=== PATIENT | female | born 1950 | race Caucasian/White ===

== ENCOUNTER → 2016-10-23 | Outpatient (CLI) | payer MEDICARE, OTHER ==
[~2016-10-23] MED LIST: ASPI81TA3 GTB; ATEN50TA PO; ATOR10TA65
--- NOTE | 2016-10-23 16:39 | RADRPT ---
PROCEDURE: XR Left Foot. CLINICAL INDICATION: Left foot pain. TECHNIQUE: Three views. Frontal, lateral, and oblique. COMPARISON: None. FINDINGS: There is no fracture or dislocation. The soft tissues are normal. There are degenerative changes of the first metatarsal phalangeal joint with joint space narrowing a nd osteophytes. There is a plantar calcaneal spur. There is no lytic or blastic lesion. There is no radiopaque foreign body. IMPRESSION: 1. Degenerative changes of the first metatarsal phalangeal joint. 2. Plantar calcaneal spur. 3. Otherwise unremarkable images of the left foot. RPTAT: QQ .Akash Ward MD, MD Date Time Electronically viewed and signed by .Akash Ward MD, MD on 10/23/2016 16:38 .R/
== END | disposition home or self-care (01) ==
LOC: RAD 13:03
PROVIDERS: ATTEND Podiatrist
DX: M79.672 Pain in left foot (principal); M77.32 Calcaneal spur, left foot; M25.775 Osteophyte, left foot